=== PATIENT | female | born 1945 | race African-American/Black ===

== ENCOUNTER 2017-07-13 16:10 | Outpatient (CLI) | payer MEDICARE, MEDICAID | END 2017-07-13 16:11 | disposition home or self-care (01) | LOC: BICMAMMO 16:10 | PROVIDERS: ATTEND Internal Medicine | DX: Z12.31 Encounter for screening mammogram for malignant neoplasm of breast (principal); Z80.3 Family history of malignant neoplasm of breast | CPT/HCPCS: 77063; 77067 ==

== ENCOUNTER 2018-07-22 14:39 | Outpatient (CLI) | payer MEDICARE, MEDICAID ==
--- NOTE | 2018-07-22 15:49 | BD ---
Exam: DEXA Bone Density 07/22/18 HISTORY: Osteoporosis screening. COMPARISON: Exam from 2013. Lumbar Spine: BMD (g/cm2) T-SCORE Z-SCORE L1 0.857 -1.2 0.3 L2 0.861 -1.5 0.2 L3 0.809 -2.5 -0.7 L4 0.800 -2.4 -0.6 L1-L4 0.828 -2.0 -0.2 WHO classification for osteopenia. Change from the comparison examination is +5.6%, statically signif icant. Left Femoral Neck: 0.721 -1.2 -0.1 Total Femur: 0.763 -1.5 -0.4 WHO classification for osteopenia. Change from the comparison examination is -2.9%. Ten year fracture risk: Major osteoporotic fracture 4.3% and hip fracture 0.7%. Impression: Osteopenia with fracture risk as above. POS: [facility]
--- NOTE | 2018-07-22 15:51 | MMO ---
Bilateral MAMMO Bilat Screen [facility]. CLINICAL HISTORY: Patient is 72 years old and is seen for screening. The patient has the following family history of breast cancer: sister and niece. The patient has no personal history of cancer. VIEWS: The views performed were: bilateral craniocaudal with tomosynthesis and bilateral mediolateral oblique with tomosynthesis. FILMS COMPARED: The present examination has been compared to prior imaging studies performed at [facility] on 04/03/2006, 04/27/2007, 05/04/2008, 05/09/2009, 06/03/2010, 06/05/2011, 06/09/2012 and 07/13/2017, and at [facility] on 06/17/2013, 06/20/2014, 06/29/2015 and 07/07/2016. MAMMOGRAM FINDINGS: There are scattered fibroglandular densities. There are no suspicious masses, suspicious calcifications, or new areas of architectural distortion. IMPRESSION: THERE IS NO MAMMOGRAPHIC EVIDENCE OF MALIGNANCY. A ROUTINE FOLLOW-UP MAMMOGRAM IN 1 YEAR IS RECOMMENDED. THE RESULTS OF THIS EXAM WERE SENT TO THE PATIENT. ACR BI-RADS Category 1 - Negative MAMMOGRAPHY NOTE: 1. A negative mammogram report should not delay a biopsy if a dominant of clinically suspicious mass is present. 2. Approximately 10% to 15% of breast cancers are not detected by mammography. 3. Adenosis and dense breasts may obscure an underlying neoplasm.
== END 2018-07-22 14:40 | disposition home or self-care (01) ==
LOC: BICMAMMO 14:39
PROVIDERS: ATTEND Internal Medicine
DX: Z12.31 Encounter for screening mammogram for malignant neoplasm of breast (principal); M81.0 Age-related osteoporosis without current pathological fracture; M85.852 Other specified disorders of bone density and structure, left thigh; Z80.3 Family history of malignant neoplasm of breast
CPT/HCPCS: 77063; 77067; 77080

== ENCOUNTER 2019-01-31 06:17 | Outpatient (CLI) | payer MEDICARE, MEDICAID ==
--- NOTE | 2019-01-31 16:34 | EKG ---
Test Reason : Blood Pressure : / mmHG Vent. Rate : 056 BPM Atrial Rate : 056 BPM P-R Int : 152 ms QRS Dur : 094 ms QT Int : 468 ms P-R-T Axes : 055 -03 179 degrees QTc Int : 451 ms Sinus bradycardia with sinus arrhythmia Left ventricular hypertrophy with repolarization abnormality Abnormal ECG When compared with ECG of 17-JAN-2014 10:32, Premature atrial complexes are no longer Present Non-specific change in ST segment in Anterior leads T wave inversion now evident in Inferior leads T wave inversion less evident in Anterior leads Confirmed by DR. Meaghan CERDA ([id number]) on 01/31/2019 4:34:36 PM Referred By: KATH Confirmed By:DR. Meaghan CERDA
[2019-02-01 07:04] LABS: Hemoglobin 11.8 g/dL (12.0-16.0); Mean Corpuscular HGB CONC 32.3 g/dL (32.0-36.0); Mean Corpuscular Hemoglobin 29.8 pg (27.0-31.0); Mean Corpuscular Volume 92.1 fL (78.0-98.0); Mean Platelet Volume 9.9 fL (7.4-10.4); Platelet Count 164 thou/uL (130-400); RBC Distribution Width 12.4 % (11.5-14.5); Red Blood Cell (RBC) Count 3.97 mill/uL (4.20-5.40); White Blood Cell (WBC) Count 6.4 thou/uL (4.8-10.8)
[2019-02-01 07:18] LABS: ALT (SGPT) 9 U/L (8-55); AST (SGOT) 13 U/L (5-34); Albumin 3.8 g/dL (3.4-4.8); Alkaline Phosphatase 49 U/L (40-110); Anion Gap 11 mmol/L (10-20); BUN (Urea Nitrogen) 13 mg/dL (9.8-20.1); Bilirubin, Total 0.2 mg/dL (0.2-1.2); Calc. Creatinine Clearance 0 mL/min (70-130); Calcium 8.3 mg/dL (7.8-10.44); Carbon Dioxide 25 mmol/L (23-31); Chloride 110 mmol/L (98-107); Estimated GFR-MDRD 83; Globulin 2.5 g/dL (2.4-3.5); Glucose 95 mg/dL (83-110); Potassium 3.7 mmol/L (3.5-5.1); Protein, Total 6.3 g/dL (6.0-8.3); Sodium 142 mmol/L (136-145)
== END 2019-01-31 06:18 | disposition home or self-care (01) ==
LOC: LABBT 06:17
PROVIDERS: ATTEND Internal Medicine Cardiovascular Disease
DX: Z01.818 Encounter for other preprocedural examination (principal); I25.10 Atherosclerotic heart disease of native coronary artery without angina pectoris
CPT/HCPCS: 80053; 85027; 93005; 93010

== ENCOUNTER → 2019-02-01 | Day surgery (SDC) | payer MEDICARE, MEDICAID ==
[2019-01-31 15:52] VITALS: BMI 28.6
[~2019-02-01] MED LIST: Clopidogrel Bisulfate 300 MG TAB ONE; Heparin 10,000 UNITS/1 ML VIAL ONE; Iopamidol 370 76% 100 ML VIAL ONE; Iopamidol 370 76% 50 ML VIAL FS ONE; Lidocaine 1% (PF) 30 ML VIAL ONE; Midazolam HCl 2 mg/2 ml Vial ONE; Nitroglycerin 100MG/250ML BOT 250 ML ONE; Verapamil 5 MG/2 ML VIAL ONE
[2019-02-01 07:10] LABS: PTT 28.4 SEC (22.9-36.1); Prothrombin Time 13.2 SEC (12.0-14.7)
[2019-02-01 07:17] LABS: Cardiac Risk 3.7 (Less than 4.5)
--- NOTE | 2019-02-01 11:17 | DIS ---
DATE OF ADMISSION: 02/01/2019 DATE OF DISCHARGE: 02/01/2019 DATE OF PROCEDURE: 02/01/2019 as an outpatient. ADMITTING DIAGNOSES: Known coronary artery disease. She was planned for scheduled angioplasty stent placement to the proximal right coronary artery. She has previous history of coronary artery disease, history of hypertension, hypercholesterolemia, history of tobacco abuse in the past, but none recent. She also has mild peripheral vascular disease. DISCHARGE DIAGNOSES: Known coronary artery disease. She was planned for scheduled angioplasty stent placement to the proximal right coronary artery. She has previous history of coronary artery disease, history of hypertension, hypercholesterolemia, history of tobacco abuse in the past, but none recent. She also has mild peripheral vascular disease. DISCHARGE MEDICATIONS: Same as her admission medications or her prior medications prior to that procedure. She takes; 1. Acetaminophen/codeine #3 p.r.n. 2. Levocetirizine 5 mg once a day. 3. Omeprazole 40 mg daily. 4. Loratadine 10 mg daily. 5. GoodSense aspirin 325 mg a day. 6. Xanax 0.25 mg once a day as needed. 7. P.r.n. Aleve. 8. Spironolactone 25 mg once a day. 9. Boniva 150 mg once a month. 10. Multivitamins. 11. Nexium 40 mg as needed. 12. Clopidogrel 75 mg once a day. 13. Isosorbide mononitrate ER 30 mg once a day. 14. Norvasc 5 mg a day. 15. Pravastatin 80 mg once a day. 16. Nitroglycerin p.r.n. She will follow with me in the next 3 to 4 weeks in the office. PROCEDURE IN THE HOSPITAL: Included angioplasty and stent placement to the right coronary artery in the proximal area. HOSPITAL COURSE: This very pleasant 73-year-old female I follow for many years. She underwent angioplasty and stent placement to the right coronary artery back in 1996 or . She had been doing quite well. She has had a repeat stent placement in the interim, but then presented again with fatigue and shortness of breath and had an abnormal stress test, was advised to undergo repeat cardiac catheterization. This was performed last week and she was noted to have a proximal significant stenosis in the right coronary artery proximal to the stent placements, which had been previously placed in the mid to distal right coronary artery. She was brought to the cardiac odd job laborer, where she was prepped and draped in sterile fashion. Using a right radial artery approach, #6-Irish introducer sheath was placed in the right radial artery. Using #6-Irish, FR4 guide catheter was advanced to the ostial of the right coronary artery. The patient had been given 6500 units of heparin. Total HCT was over 271. The patient then using a coronary wire was passed down the distal right coronary artery using a 3.0 x 12 mm NC balloon, it was passed across the stenotic area and the proximal right coronary artery was dilated. There was still residual stenosis. The balloon was then removed and then using 3.0 x 12 mm drug-coated stent Synergy, this was passed across the entirety of the stenotic area, it was deployed after max inflation pressure to give 3.04 mm in the vessel. There was good step-up distally. No evidence of distal embolization or dissection. The patient tolerated the procedure well. It was noted that the previous stents are still patent, but she does have in-stent restenoses about 50% in the distal portion, but still has good runoff down the distal vessel. On previous cardiac catheterization, this has been relatively unchanged. We will continue her present medications. She tolerated the procedure well. She was given 2 mg of IV versed for conscious sedation, throughout the procedure was monitored by an independent observer present. Total sedation time was 37 minutes. No difficulties or complications were encountered. At the end of the procedure, the radial artery catheter was removed and a TR band was placed. No complications or difficulties. We would anticipate the patient to be discharged within the next 5 to 6 hours. Job ID: [id number] [facility] HOSPITALServando
== END ==
LOC: CCL 05:53
PROVIDERS: ATTEND Internal Medicine Cardiovascular Disease
PROC: 027034Z Dilation of Coronary Artery, One Artery with Drug-eluting Intraluminal Device, Percutaneous Approach (ICD-10-PCS; principal; 2019-02-01)
PROC: 4A023N7 Measurement of Cardiac Sampling and Pressure, Left Heart, Percutaneous Approach (ICD-10-PCS; 2019-02-01)
PROC: B2111ZZ Fluoroscopy of Multiple Coronary Arteries using Low Osmolar Contrast (ICD-10-PCS; 2019-02-01)
DX: I25.10 Atherosclerotic heart disease of native coronary artery without angina pectoris (principal); I10 Essential (primary) hypertension; E78.00 Pure hypercholesterolemia, unspecified; K21.9 Gastro-esophageal reflux disease without esophagitis; E78.2 Mixed hyperlipidemia; I73.9 Peripheral vascular disease, unspecified; Z87.891 Personal history of nicotine dependence; Z79.02 Long term (current) use of antithrombotics/antiplatelets; Z79.82 Long term (current) use of aspirin; Z79.83 Long term (current) use of bisphosphonates; Z79.899 Other long term (current) drug therapy; Z88.8 Allergy status to other drugs, medicaments and biological substances; Z95.5 Presence of coronary angioplasty implant and graft
CPT/HCPCS: 36415; 80061; 85347; 85610; 85730; 92928; 93454; 99152; C1769; C1874; C1887; C9600; J1644; J2001; J2250; Q9967

== ENCOUNTER 2019-08-26 15:01 | Outpatient (CLI) | payer MEDICARE, MEDICAID ==
--- NOTE | 2019-08-26 15:59 | MMO ---
Bilateral MAMMO Bilat Screen [facility]. CLINICAL HISTORY: Patient is 73 years old and is seen for screening. The patient has the following family history of breast cancer: sister and niece. The patient has no personal history of cancer. VIEWS: The views performed were: bilateral craniocaudal with tomosynthesis and bilateral mediolateral oblique with tomosynthesis. FILMS COMPARED: The present examination has been compared to prior imaging studies performed at [facility] on 07/13/2017 and 07/22/2018, and at [facility] on 06/29/2015 and 07/07/2016. This study has been interpreted with the assistance of computer-aided detection. MAMMOGRAM FINDINGS: There are scattered fibroglandular densities. There are no suspicious masses, suspicious calcifications, or new areas of architectural distortion. IMPRESSION: THERE IS NO MAMMOGRAPHIC EVIDENCE OF MALIGNANCY. A ROUTINE FOLLOW-UP MAMMOGRAM IN 1 YEAR IS RECOMMENDED. THE RESULTS OF THIS EXAM WERE SENT TO THE PATIENT. ACR BI-RADS Category 1 - Negative MAMMOGRAPHY NOTE: 1. A negative mammogram report should not delay a biopsy if a dominant of clinically suspicious mass is present. 2. Approximately 10% to 15% of breast cancers are not detected by mammography. 3. Adenosis and dense breasts may obscure an underlying neoplasm. Reported by: MIRIAM SALAZAR MD Electonically Signed: [id number]
== END 2019-08-26 15:02 | disposition home or self-care (01) ==
LOC: BICMAMMO 15:01
PROVIDERS: ATTEND Internal Medicine
DX: Z12.31 Encounter for screening mammogram for malignant neoplasm of breast (principal); Z80.3 Family history of malignant neoplasm of breast
CPT/HCPCS: 77063; 77067; 80053; 80061; 85025

== ENCOUNTER 2020-08-28 15:18 | Outpatient (CLI) | payer MEDICARE, MEDICAID | END 2020-08-28 15:19 | disposition home or self-care (01) | LOC: BICMAMMO 15:18 | PROVIDERS: ATTEND Internal Medicine | DX: Z12.31 Encounter for screening mammogram for malignant neoplasm of breast (principal); Z13.820 Encounter for screening for osteoporosis; Z78.0 Asymptomatic menopausal state; Z80.3 Family history of malignant neoplasm of breast | CPT/HCPCS: 77063; 77067; 77080 ==

== ENCOUNTER 2020-12-31 13:01 | Emergency (ER) | payer MEDICARE, MEDICAID ==
[2020-12-31 23:30] LABS: SARS-CoV-2 PCR by NAA DETECTED (NotDetected)
== END 2020-12-31 13:57 | disposition home or self-care (01) ==
LOC: ERS 13:01
DX: U07.1 COVID-19 (principal); I25.10 Atherosclerotic heart disease of native coronary artery without angina pectoris; I25.2 Old myocardial infarction; E78.5 Hyperlipidemia, unspecified; I10 Essential (primary) hypertension
CPT/HCPCS: 99283; U0003; U0005

== ENCOUNTER 2021-09-20 12:39 | Outpatient (CLI) | payer MEDICARE, MEDICAID | END 2021-09-20 12:40 | disposition home or self-care (01) | LOC: BICMAMMO 12:39 | PROVIDERS: ATTEND Internal Medicine | DX: Z12.31 Encounter for screening mammogram for malignant neoplasm of breast (principal); Z80.3 Family history of malignant neoplasm of breast | CPT/HCPCS: 77063; 77067 ==

== ENCOUNTER 2023-05-27 15:44 | Outpatient (CLI) | payer OTHER, MEDICAID | END 2023-05-27 15:45 | disposition home or self-care (01) | LOC: BICMAMMO 15:44 | PROVIDERS: ATTEND Internal Medicine | DX: Z12.31 Encounter for screening mammogram for malignant neoplasm of breast (principal); Z80.3 Family history of malignant neoplasm of breast | CPT/HCPCS: 77063; 77067 ==

== ENCOUNTER 2024-02-20 14:40 | Emergency (ER) | payer OTHER, MEDICAID ==
[2024-02-20 15:27] LABS: Bacteria/HPF 4+ HPF (None Seen); Bilirubin Negative (Negative); Blood, Urine 3+ (Negative); CAUTI Indications for Culture Dysuria,urgency,freq; Clarity Extra Turbid (Clear); Glucose, Urine (Dipstick) Normal (Negative); Ketone, Urine Negative (Negative); Leukocyte 500 Leu/uL (Negative); Nitrite 2+ (Negative); Protein, Urine (Dipstick) 200 mg/dL (Neg-Trace); RBC/HPF Greater than 50 HPF (0-3); Specific Gravity, Urine 1.011 (1.002-1.036); Urobilinogen Normal mg/dL (Less than 2); WBC/HPF Greater than 50 HPF (0-3)
[2024-02-20 15:30] LABS: Yeast-Hyphae 1+ HPF (None Seen)
[2024-02-20 15:31] LABS: Urine Culture Reflex Yes Yes
== END 2024-02-20 15:48 | disposition home or self-care (01) ==
LOC: ERS 14:40
DX: N39.0 Urinary tract infection, site not specified (principal); I10 Essential (primary) hypertension; Z95.5 Presence of coronary angioplasty implant and graft
CPT/HCPCS: 81001; 87077; 87086; 87186; 99283

== ENCOUNTER 2024-04-26 13:06 | Outpatient (CLI) | payer OTHER, MEDICAID | END 2024-04-26 13:07 | disposition home or self-care (01) | LOC: BICCT 13:06 | PROVIDERS: ATTEND Internal Medicine | DX: N39.0 Urinary tract infection, site not specified (principal); I70.90 Unspecified atherosclerosis | CPT/HCPCS: 74176 ==